=== PATIENT | female | born 2000 | race Two or more races ===

== ENCOUNTER 2025-04-07 17:26 | Emergency (ER) | payer OTHER ==
[~2025-04-07] VITALS: Ht 157.5 cm; Wt 54.9 kg
[2025-04-07] MEDS ORDERED: ONDANSETRON HCL 2 MG/ML VIAL IV STA (21:20)
[2025-04-07] MEDS ORDERED: FAMOTIDINE/PF 20 MG/2 ML VIAL IV PUSH STA (21:20)
[2025-04-07] MEDS ORDERED: 0.9 % SODIUM CHLORIDE 500 ML IV ONE (21:30)
[2025-04-07] MEDS ORDERED: ONDANSETRON HCL 2 MG/ML VIAL ONE (21:39)
[2025-04-07] MEDS ORDERED: FAMOTIDINE/PF 20 MG/2 ML VIAL ONE (21:39)
[2025-04-07 22:13] LABS: BASO % 0.1 % (0.1-1.2); EOS # 0.02 (0.04-0.54); EOS % 0.1 % (0.7-7.0); LYMPH # 0.63 (1.18-3.74); LYMPH % 4.2 % (19.3-53.1); MEAN PLATELET VOLUME 9.80 fl (9.4-12.4); MONO # 0.37 (0.24-0.82); MONO % 2.5 % (4.7-12.5); NEUT # 13.99 (1.56-6.13); NEUT % 92.8 % (34.0-71.1); RED CELL DISTRIBUTION WIDTH 13.9 % (11.6-14.4)
[2025-04-07 22:42] LABS: ALT/SGPT 23.0 U/L (12-78); AST/SGOT 19.0 U/L (15-37); BILIRUBIN TOTAL 0.76 mg/dL (0.3-1.2); BUN CREA RATIO 16.0 (7.0-25.0); CREATININE SERUM 0.61 mg/dL (0.55-1.02); GFR 120.5; GLOBULINA 4.3 G/DL (2.4-3.5); GLUCOSE FASTING 103.0 mg/dL (65-100); OSMOLALITY SERUM 277.0 MOSM/KG (275-295)
[2025-04-07] MEDS ORDERED: CETIRIZINE HCL 5 MG/5 ML ML PO STA (23:07)
[2025-04-07] MEDS ORDERED: GUAIFENESIN/DEXTROMETHORPHAN 100MG/10ML BLIST.PACK PO ONE ×2 (23:15→23:38)
[2025-04-07 23:18] LABS: URINE APPEARANCE Clear; URINE BILIRRUBIN Negative (NEGATIVE); URINE BLOOD Small; URINE COLOR Yellow; URINE GLUCOSE Negative (NEGATIVE); URINE LEUKOCYTE Small; URINE NITRATE Negative; URINE PROTEIN Trace (NEGATIVE); URINE UROBILINOGEN 0.2 E.U./dl
[2025-04-07 23:22] LABS: URINE BACTERIA 1180.7 uL (0.0-1933); URINE EPITHELIAL CELLS 43.0 uL (0.0-38.8); URINE RBC 20.9 uL (0.0-20.8); URINE WBC 164.7 uL (0.0-23.2)
[2025-04-07] MEDS ORDERED: CETIRIZINE HCL 5MG/5ML BLIST.PACK PO ONE (23:36)
[2025-04-07 23:44] LABS: COVID-19 AG NEGATIVE (NEGATIVE)
[2025-04-07 23:46] LABS: URINE CAST 0.87 uL (0.0-1.40); URINE KETONE >=160 (NEGATIVE)
[2025-04-08] MEDS ORDERED: ONDANSETRON HCL4 MG PO (00:06)
[2025-04-08] MEDS ORDERED: PEPCID AC20 MG PO (00:06)
== END 2025-04-08 00:37 | disposition home or self-care (01) ==
LOC: ER 17:26
PROVIDERS: General Practice
DX: K52.9 Noninfective gastroenteritis and colitis, unspecified (principal); Z20.822 Contact with and (suspected) exposure to COVID-19